=== PATIENT | male | born 1965 | race Caucasian/White ===

== ENCOUNTER 2018-07-11 00:43 | Emergency (ER) | payer OTHER ==
[2018-07-11] MEDS ORDERED: Nitroglycerin 0.4 MG TAB (25 Tab Bottle) ONE (01:07)
[2018-07-11] MEDS ORDERED: Fentanyl 100 MCG/2 ML VIAL ONE (03:49)
--- NOTE | 2018-07-11 05:46 | CON ---
DATE OF CONSULTATION: 07/11/2018 GI/ER CONSULTATION NOTE REASON FOR CONSULTATION: Esophageal food bolus impaction. HISTORY OF PRESENT ILLNESS: Moses Simmons is a very pleasant 53-year-old gentleman, who is transferred here from an outside ER tonight with esophageal food bolus impaction. He has a history of diabetes, but is essentially otherwise healthy. He says 7 or 8 years ago, he had a similar episode which eventually resolved on its own and since then, he will have rare recurrent episodes of mild dysphagia to the certain solids, which is always quiet transient and nonprogressive through the years. About 7 hours ago, he was eating some fajita steak and unfortunately, the first bite got stuck in the upper chest area. The sensation has not resolved. He has been spitting up all of his secretions. There was no shortness of breath. No fever. No other symptoms. They tried glucagon, magnesium, and nitroglycerin all without any benefit. He has never undergone EGD in the past. There is no family history of GI malignancy. He does not have much in the way of chronic heart burn symptoms between these episodes. REVIEW OF SYSTEMS: Full review of systems including constitutional, head, eyes, ears, nose, throat, GI, , cardiovascular, respiratory, musculoskeletal, and neurologic systems is negative except as noted in the HPI. PAST MEDICAL HISTORY: Diabetes type 2. ALLERGIES: NO KNOWN DRUG ALLERGIES. MEDICATIONS: 1. Atorvastatin. 2. Bupropion. 3. Citalopram. 4. Janumet. SOCIAL HISTORY: No smoking or drug use. Alcohol use is occasional. FAMILY HISTORY: His father has some kind of intestinal illness of which the patient does not know any further details. No other family history of GI malignancy. PHYSICAL EXAMINATION: VITAL SIGNS: Pulse 74, blood pressure 137/84, and 92% oxygen saturation on room air. GENERAL: A 53-year-old man sitting up in bed, in mild distress. Occasionally spitting up secretions into a bag. SKIN: No jaundice, no rashes are palpable. EYES: No scleral icterus. Extraocular movements intact. ENT: Mucous membranes are moist. No oral lesions. LYMPH: No submandibular or supraclavicular lymphadenopathy. THYROID: Nontender to palpation. HEART: Regular rate and rhythm. LUNGS: Clear to auscultation bilaterally. ABDOMEN: Bowel sounds are present. Soft and nontender to palpation. EXTREMITIES: No peripheral edema. VESSELS: Radial pulses 2+ bilaterally. NEURO: Cranial nerves 2 through 12 intact bilaterally. No focal deficits. ASSESSMENT AND PLAN: 1. Esophageal food bolus impaction. 2. Dysphagia, chronic and intermittent for the past 8 years or so. The patient's presentation is consistent with esophageal food bolus impaction. We need to proceed with EGD on an urgent basis tonight. We plan to get this done within the next hour or two. I discussed possible reasons for esophageal dysphagia with the patient. Depending on findings, we may get esophageal biopsies and/or perform esophageal dilation. The patient desires to proceed. I anticipate he will probably be able to be discharged home after the procedure. Job ID: [id number]
--- NOTE | 2018-07-11 05:51 | OP ---
DATE OF PROCEDURE: 07/11/2018 GI ENDOSCOPY NOTE. VP INFORMATICS SURGEON: None. PROCEDURE PERFORMED: Esophagogastroduodenoscopy with foreign body removal and biopsies. INDICATION: Esophageal food bolus impaction. MEDICATIONS: See Anesthesia record. FINDINGS: After discussion of the risks, benefits, and alternatives of the procedure, informed consent was obtained and witnessed. Pre-endoscopic cardiopulmonary examination was satisfactory. Time-out was performed before sedation was achieved. Sedation was achieved with Anesthesia assistance in the endoscopy unit. The patient was endotracheally intubated for airway protection. A Pentax adult therapeutic upper endoscope was placed into the oropharynx and passed through the cricopharyngeus under direct visualization. In the proximal esophagus at about 20 cm from the incisors, I encountered a large meat of food bolus. This was impacted and did not pass with air insufflation. I used multiple tools to extract the food bolus, use of the Meza Net was unsuccessful due to the narrow caliber of the esophagus and large size of food bolus, use of the 4-pronged graspers was also unsatisfactory. The food bolus was eventually removed piece by piece with a rat-toothed forceps. Following complete extraction, I was able to examine the entire esophagus. There was significant edema and narrow caliber of entire esophagus throughout its length. There was also quite striking circumferential fold throughout most of the esophagus and the appearance was highly suggestive of eosinophilic esophagitis. I obtained biopsies from the mid esophagus to assess for this. There was no esophageal mass. The endoscope was advanced into the stomach. Forward and retroflex views of the entire gastric mucosa were obtained and the gastric mucosa appeared normal. The endoscope was advanced beyond the pylorus and into the first and second portions of the duodenum which also appeared normal. The upper endoscope was then completely withdrawn and the patient allowed to recover. The patient tolerated the procedure well. There were no immediate postprocedure complications. IMPRESSION: 1. Large meat bolus in the upper esophagus, now completely extracted. 2. Narrow caliber esophagus, edema, and circumferential folds throughout most of the esophagus, highly suggestive of eosinophilic esophagitis. Mid esophageal biopsies obtained. 3. Otherwise normal esophagogastroduodenoscopy. RECOMMENDATIONS: 1. Clear-liquid diet for the rest of the day, then advance diet as tolerated thereafter. 2. Chew food thoroughly. 3. Followup biopsy results. 4. We will start him on a twice daily oral proton pump inhibitor. 5. Followup in the [facility] with Dr. Vann or his physician legal assistant in 2 weeks. Job ID: [id number]
[2018-07-11] MEDS ORDERED: PROPOFOL 200 MG/20 ML VIAL ONE (11:07)
[2018-07-11] MEDS ORDERED: Succinylcholine Chloride 20 MG/ML 10 ml SYRINGE FS ONE (11:07)
== END 2018-07-11 02:11 | disposition admitted as inpatient to this hospital (09) ==
LOC: ERS 00:43
DX: T18.128A Food in esophagus causing other injury, initial encounter (principal); E11.9 Type 2 diabetes mellitus without complications; X58.XXXA Exposure to other specified factors, initial encounter
CPT/HCPCS: 88305; 88312; 88313; 96374; 99285; J2704; J3010

== ENCOUNTER 2023-06-14 12:57 | Outpatient (CLI) | payer BC | END 2023-06-14 12:58 | disposition home or self-care (01) | LOC: BICRAD 12:57 | PROVIDERS: ATTEND Family Medicine | DX: J18.9 Pneumonia, unspecified organism (principal) | CPT/HCPCS: 71046 ==

== ENCOUNTER 2023-06-29 08:31 | Outpatient (CLI) | payer BC | END 2023-06-29 08:32 | disposition home or self-care (01) | LOC: BICRAD 08:31 | PROVIDERS: ATTEND Family Medicine | DX: J18.9 Pneumonia, unspecified organism (principal) | CPT/HCPCS: 71046 ==

== ENCOUNTER 2023-08-04 09:12 | Outpatient (CLI) | payer BC | END 2023-08-04 09:13 | disposition home or self-care (01) | LOC: BICRAD 09:12 | PROVIDERS: ATTEND Family Medicine | DX: J18.9 Pneumonia, unspecified organism (principal); R91.8 Other nonspecific abnormal finding of lung field | CPT/HCPCS: 71046 ==